=== PATIENT | male | born 1940 | race Caucasian/White ===

== ENCOUNTER → 2016-04-08 | Outpatient (CLI) | payer MEDICARE ==
[~2016-04-08] MED LIST: ACHD5005 PO; ASP81TEC PO; CETI10TA17 PO; CLOP75TA PO; DILT240C87 PO; FISH OIL 1,2001 EAC1 PO; GLUC-153 PO; MULT-1029 PO; PRAV40TA PO
--- NOTE | 2016-04-09 08:24 | ECHOCARDIOGRAPHY REPORT ---
PROCEDURE PHYSICIAN: JIMMIE EVANS DATE OF PROCEDURE: 04/08/2016 TWO DIMENSIONAL ECHOCARDIOGRAM REPORT PRIMARY PHYSICIAN: Dr. Helms OTHER PHYSICIAN: Dr. Evans REFERRING PHYSICIAN: ORDERING PHYSICIAN: Natalie Allred APRN INDICATION FOR THE PROCEDURE: Valvular regurgitation. MEASUREMENTS DERIVED VALUES LV DIAMETER (LAX) NORMALS NORMALS Diastolic 5.3 (3.6-5.2) Eject. Fract. (60%+/-6%) Systolic (2.3-3.9) Diastolic Vol. % Shortening (0.22-0.42) Systolic Vol. Aortic Root 3.1 IVS THICKNESS Diastolic 1 (0.6-1.1) LVPW THICKNESS Diastolic 1 (0.6-1.1) LA DIAMETER Systolic 4.2 (2.1-3.7) DESCRIPTION: Two-dimensional echocardiography shows normal global left ventricular systolic function with normal regional wall motion. Aortic, mitral and tricuspid valve leaflets show good leaflet excursion. There is no significant pericardial effusion. There is mild left atrial enlargement. Doppler imaging shows mild mitral, tricuspid and pulmonic regurgitation. There is no Doppler evidence of significant valvular stenosis. Aortic valve appears to be trileaflet. Pulmonary artery systolic pressure is estimated to be approximately 25 to 30 mmHg. CONCLUSION: 1. Normal global left ventricular systolic function with an ejection fraction of approximately 60%. 2. Mild pulmonic, tricuspid and mitral regurgitation. 3. Pulmonary artery systolic pressure was estimated 20 to 30 mmHg. 4. No evidence of significant valvular stenosis. 5. Mild enlargement of the atrium. Job ID: [id number] Dictated Date: 04/08/2016 15:37:33 Casing Man Date: 04/09/2016 08:15:53 / tila
== END ==
LOC: CARD 07:50
PROVIDERS: ATTEND Nurse Practitioner Family
DX: I34.0 Nonrheumatic mitral (valve) insufficiency (principal); I07.1 Rheumatic tricuspid insufficiency; I47.1 Supraventricular tachycardia; E78.4 Other hyperlipidemia
CPT/HCPCS: 93306

== ENCOUNTER → 2018-12-03 | Outpatient (CLI) | payer MEDICARE | LOC: CARD 12:34 | PROVIDERS: ATTEND Internal Medicine Cardiovascular Disease | DX: I65.29 Occlusion and stenosis of unspecified carotid artery (principal); E78.5 Hyperlipidemia, unspecified; I47.1 Supraventricular tachycardia; I27.21 Secondary pulmonary arterial hypertension; Z86.73 Personal history of transient ischemic attack (TIA), and cerebral infarction without residual deficits; R42 Dizziness and giddiness | CPT/HCPCS: 93306 ==

== ENCOUNTER → 2018-12-07 | Outpatient (CLI) | payer MEDICARE ==
[~2018-12-07] VITALS: Ht 178 cm; Wt 80.0 kg
[~2018-12-07] MED LIST changes: +CATHETER FLUSH 10 ML SYR IV PRN; +REGADENOSON 0.4 MG/5 ML SYR (LEXISCAN) IV ONE
[2018-12-07 09:50] VITALS: BP 134/81
[2018-12-07 09:53] VITALS: BP 144/83
--- NOTE | 2018-12-07 15:26 | STRESS TEST ---
DATE OF SERVICE: 12/07/2018 RESTING AND POST REGADENOSON TECHNETIUM-99M TETROFOSMIN SPECT CT IMAGING ORDERING PHYSICIAN: Natalie Allred APRN PRIMARY PHYSICIAN: Dr. Helms. CLINICAL DIAGNOSES: Paroxysmal supraventricular tachycardia, carotid arterial disease. Baseline images were carried out after injection of 10.97 mCi of technetium-99m Tetrofosmin. This was followed by 0.4 mg regadenoson and 29.2 mCi of technetium-99m Tetrofosmin for stress imaging. The electrocardiogram showed sinus rhythm with subtle nonspecific ST abnormality, which did not change with the regadenoson infusion. The patient noted some headache following regadenoson, which resolved in a few minutes. Review of images at rest and following stress indicates a small to moderate sized lateral perfusion defect, which appears transient. Gated images show normal global left ventricular systolic function with normal regional wall motion. Left ventricular ejection fraction is calculated to be 57%. Left ventricular end diastolic volume is 101 mL. TID is absent (1.06). CONCLUSIONS: 1. The study is suggestive of a small to moderate amount of lateral ischemia. 2. Normal regional wall motion. 3. Normal global left ventricular systolic function with a calculated ejection fraction of 57%. Job ID: [id number] DocumentID: [id number] Dictated Date: 12/07/2018 12:52:28 [employer] Date: 12/07/2018 15:25:41 Dictated By: JIMMIE VASQUEZ MD, MA, FACP, FACC,
== END ==
LOC: CARD 08:13
PROVIDERS: ATTEND Nurse Practitioner Family
DX: I47.1 Supraventricular tachycardia (principal); I65.29 Occlusion and stenosis of unspecified carotid artery
CPT/HCPCS: 78452; 93017

== ENCOUNTER 2018-12-14 07:56 | Day surgery (SDC) | payer MEDICARE ==
[2018-12-14] VITALS (9 sets, daily range): BP systolic 119–140; BP diastolic 69–81
[~2018-12-14] VITALS: Ht 178 cm; Wt 80.0 kg
[~2018-12-14 07:56] MED LIST changes: -CATHETER FLUSH 10 ML SYR IV PRN; -REGADENOSON 0.4 MG/5 ML SYR (LEXISCAN) IV ONE
[2018-12-14] MEDS ORDERED: LIDOCAINE 1% INJ 20 ML 20 ML VIAL ONE (08:04)
[2018-12-14] MEDS ORDERED: HEParin (CATH LAB) 2,000 ML IV ONE (08:04)
[2018-12-14] MEDS ORDERED: NS IV 1000 ML 1,000 ML IV SCH ×2 (08:15→11:43)
[2018-12-14 08:25] LABS: HEMOGLOBIN 14.6 G/DL (13.3-17.7); MEAN PLATELET VOLUME 9.4 FL (7.4-10.4); RED CELL DISTRIBUTION WIDTH 12.4 % (10.0-14.5); WHITE BLOOD COUNT 7.4 10^3/uL (4.3-11.0)
[2018-12-14 08:35] LABS: INR 0.9 (0.8-1.4); PROTHROMBIN TIME PATIENT 12.4 SEC (12.2-14.7)
[2018-12-14] MEDS ORDERED: MIRA25TA PO (08:40)
--- NOTE | 2018-12-14 08:40 | NUR ---
SPOKE TO PATIENT HE LEFT HIS BOTTLES IN HIS CAR. HAD A LIST IN HIS WALLET. WENT OVER LIST WITH PATIENT. CALLED [facility] TO VERIFY HIS MEDICATIONS. THEY STATED HE FILLED PLAVIX 75MG ON 11/12/18 FOR A 90 DAY SUPPLY. BUT IT WAS NOT ON HIS LIST.
[2018-12-14 08:45] LABS: ALANINE AMINOTRANSFERASE 17 U/L (0-55); ALBUMIN 4.6 GM/DL (3.2-4.5); ALKALINE PHOSPHATASE 78 U/L (40-136); BILIRUBIN,TOTAL 0.7 MG/DL (0.1-1.0); BUN/CREATININE RATIO 13; CALCIUM 9.6 MG/DL (8.5-10.1); CARBON DIOXIDE 29 MMOL/L (21-32); CHLORIDE 106 MMOL/L (98-107); CHOLESTEROL 187 MG/DL (< 200); CREATININE SERUM 0.84 MG/DL (0.60-1.30); GFR ESTIMATED > 60; GLUCOSE 98 MG/DL (70-105); HDL CHOLESTEROL 58 MG/DL (40-60); POTASSIUM 3.9 MMOL/L (3.6-5.0); SODIUM 142 MMOL/L (135-145); TOTAL PROTEIN 7.8 GM/DL (6.4-8.2); TRIGLYCERIDES 95 MG/DL (<150); VLDL CHOLESTEROL 19 MG/DL (5-40)
[2018-12-14] MEDS ORDERED: MIDAZOLAM 5 MG/5 ML (VERSED) VIAL ONE (10:04)
[2018-12-14] MEDS ORDERED: fentaNYL INJECTION 100 MCG/2 ML AMP ONE (10:04)
--- NOTE | 2018-12-14 10:13 | Cardiac Procedure Note-CS/ASA ---
Pre-Procedure Note Pre-Op Procedure Note H&P Reviewed The H&P was reviewed, patient examined and no changes noted. Date H&P Reviewed: Dec 14, 2018 Time H&P Reviewed: 10:12 Conscious Sedation Pre-Proced Time 10:12 ASA Score 3 For ASA 3 and 4: Consider anesthesia and medical clearance. Also, for patients with a history of failed moderate sedation consider anesthesia. Airway Lungs Heart ASA score ASA 1: a normal healthy patient ASA 2: a patient with a mild systemic disease (mid diabetes, controlled hypertension, obesity ASA 3: a patient with a severe systemic disease that limits activity (angina, COPD, prior Myocardial infarction) ASA 4: a patient with an incapacitating disease that is a constant threat to life (CHF, renal failure) ASA 5: a moribund patient not expected to survive 24 hrs. (ruptured aneurysm) ASA 6: a declared brain- patient whose organs are being harvested. For emergent operations, add the letter E after the classification Mallampati Classification Grade 2 Sedation Plan Analgesia, Amnesia, Plan communicated to team members, Discussed options with patient/fam, Discussed risks with patient/fam The patient is an appropriate candidate to undergo the planned procedure, sedation, and anesthesia. The patient immediately re-assessed prior to indication. JIMMIE VASQUEZ MD FACP FAC CCDS Dec 14, 2018 10:13
[2018-12-14] MEDS ORDERED: HEParin 1000 UNIT/ML (10ML VIAL) FOR BOLUS ONE (10:45)
[2018-12-14] MEDS ORDERED: ADENOSINE 3 MG/1 ML (ADENOSCAN) 30ML VIAL IV ONE ×2 (10:45→10:46)
[2018-12-14] MEDS ORDERED: PATIENT MAY USE OWN MEDS, ALL PO SCH (11:45)
--- NOTE | 2018-12-14 11:46 | Discharge Inst-Cardiology ---
Discharge Inst-Cardiac Discharge Medications Continued Medications: Aspirin (Aspirin Ec 81 Mg) 81 Mg Tabec 81 MG PO DAILY Clopidogrel Bisulfate (Plavix 75 Mg) 75 Mg Tablet 75 MG PO MWF Diltiazem Hcl (Diltiazem Er 240 Mg (Tiazac)) 240 Mg Capsule.sa 240 MG PO DAILY Beyaqpvd-Dsdhrxv-Qfpe 149-Hyal (Glucosamine-Chondr Complex Tab) 1 Each Tablet 2 TAB PO DAILY Mirabegron (Myrbetriq) 25 Mg Tab.er.24h 25 MG PO HS, TAB Mu-Vits-Min Th/Lycopene/Lutein (Centrum Silver Tablet) 1 Each Tablet 1 TAB PO DAILY Pravastatin Sodium (Pravachol) 40 Mg Tablet 40 MG PO HS Orders-Post D/C & Referrals Pneu Vac Indicated: Yes JIMMIE VASQUEZ MD FACP FAC CCDS Dec 14, 2018 11:46
--- NOTE | 2018-12-14 11:47 | Discharge Inst-Post CATH ---
Discharge Inst-CATH/EP Post Cardiac Cath/EP D/C Inst Follow Up/Plan F/u with Dr Evans in 2 weeks ACTIVITY * Go Home directly and rest. * Limit activity of the leg (or wrist if it was used) for 7 days including aerobics, swimming, jogging, bicycling, etc. * Restrict stair-climbing for 7 days if possible, if not, climb up with your n on-cath leg, then bring together on the same step. * Avoid lifting, pushing, pulling or excessive movement of the affected ex tremity for 7 days. * Customary sexual activity may be resumed after 2 days-use caution not to use a position that strains or causes pain to the affected extremity. * No driving for 24 hours. * NO SMOKING. * Avoid straining for bowel movements for 7 days. * Gentle walking on level ground is allowed. * Returning to work will depend on the type of procedure and the results. Your doctor will discuss this with you. CALL YOUR DOCTOR FOR ANY OF THE FOLLOWING: *If bleeding from the puncture site occurs- Apply gentle pressure to site with clean cloth and call your doctor or EMS. * If a knot or lump forms under the skin, increases in size, or causes pain. * If bruising appears to be worsening or moving further down your leg instead of disappearing. * Temperature above 101 F. CARE OF YOUR GROIN INCISION; * Bruising or purple discoloration of the skin near the puncture site is common. * You may shower only, no bathtub bathing for 5 days. Be careful to avoid slipping as your leg may feel stiff. * If a closure device was used on your femoral artery, please see the attached guide regarding care of the device and your leg. * Leave dressing on FOR 24 hours. CARE OF YOUR WRIST INCISION; * Bruising or purple discoloration of the skin near the puncture site is common. * You may shower. * DO NOT submerge wrist. * Leave dressing on FOR 24 hours. JIMMIE EVANS MD FAC FAC CCDS Dec 14, 2018 11:47
--- NOTE | 2018-12-14 13:57 | CARDIAC CATHETERIZATION ---
DATE OF SERVICE: 12/14/2018 CARDIAC CATHETERIZATION REPORT The patient is a 78-year-old man who has coronary artery disease risk factors and who had a myocardial perfusion imaging study done recently prior to having orthopedic surgery. This showed lateral ischemia, small to moderate. Cardiac catheterization was carried out today after having obtained an informed consent. DESCRIPTION OF PROCEDURE: He was brought to the cardiac catheterization laboratory in a fasting state. Right groin was prepared and draped in the usual sterile fashion. Lidocaine 1% used for local anesthesia. Modified Seldinger technique was used to advance a 5-Gibraltarian sheath for right femoral artery, 5-Gibraltarian JL4 catheter for left coronary angiography, 5-Gibraltarian JR4 catheter for right coronary angiography, 5-Gibraltarian pigtail catheter was used for left heart catheterization and left ventricular angiography. Angiography of the right femoral artery was carried out through the sheath. Mynx was used to achieve hemostasis following sheath removal. HEMODYNAMICS: Left ventricular end-diastolic pressure following coronary angiography was 13 mmHg. There is no significant pressure gradient on pullback across the aortic valve. Ascending aortic pressure was 113/60 with a mean of 73 mmHg. CORONARY ANGIOGRAPHY: Coronary calcification is present involving all coronary vessels. Left main coronary artery does not exhibit significant obstructive disease. Left anterior descending artery has diffuse mild to moderate disease. The terminal portion of the left anterior descending artery has a localized 90% stenosis. This is just prior to the artery terminating and the vessel is of a small caliber over there and not amenable to intervention. A small caliber ramus intermedius artery is chronically occluded. Left circumflex artery had 50% proximal stenosis. The right coronary artery was a dominant and had multiple 50% stenosis in its distal portion, including the origin of the posterior descending branch. LEFT VENTRICULAR ANGIOGRAPHY: Showed normal global left ventricular systolic function with ejection fraction of 65%. No regional wall motion abnormalities were seen. FRACTIONAL FLOW RESERVE MEASUREMENT IN THE CIRCUMFLEX ARTERY: Following completion of the diagnostic procedure, we exchanged the sheath over a wire for 6-Gibraltarian sheath. We used a 6-Gibraltarian JL4.5 guide catheter to engage the left coronary artery. We gave 5000 units of intravenous heparin. We used a pressure wire to cross the lesion in the proximal left circumflex artery and the tip was placed in the distal vessel. We infused adenosine at 140 mcg per kilogram per minute for 2-1/2 minutes. A fractional flow reserve was 0.99, indicating that this lesion was not hemodynamically significant. CONCLUSIONS: 1. Coronary artery disease as described in detail above. The very terminal portion of the left anterior descending artery has 90% stenosis, but is of a small caliber and not amenable to intervention. A small caliber ramus intermedius is chronically occluded. Left circumflex artery has 50% proximal stenosis with a fractional flow reserve was 0.99, indicating hemodynamic insignificance. Right coronary artery has multiple 50% stenosis in its distal portion. 2. Normal global left ventricular systolic function with ejection fraction 65%. 3. Mild elevation of left ventricular end-diastolic pressure. DISCUSSION AND RECOMMENDATIONS: Based on results of the study, conservative therapy appears appropriate. Cardiac risk for noncardiac surgery is estimated to be intermediate. Outpatient followup is advised. Job ID: [id number] DocumentID: [id number] Dictated Date: 12/14/2018 11:26:37 Search Developer Date: 12/14/2018 13:55:52 Dictated By: JIMMIE VASQUEZ MD, MA, FACP, FACC,
== END 2018-12-14 14:55 | disposition home or self-care (01) ==
LOC: CATH 07:56 → SDC 11:40 → CATH 14:55
PROVIDERS: ATTEND Internal Medicine Cardiovascular Disease
DX: I25.10 Atherosclerotic heart disease of native coronary artery without angina pectoris (principal); I77.9 Disorder of arteries and arterioles, unspecified; I47.1 Supraventricular tachycardia; I99.8 Other disorder of circulatory system; R42 Dizziness and giddiness; M25.562 Pain in left knee; G89.29 Other chronic pain; E78.5 Hyperlipidemia, unspecified; Z79.82 Long term (current) use of aspirin; Z86.73 Personal history of transient ischemic attack (TIA), and cerebral infarction without residual deficits; Z79.02 Long term (current) use of antithrombotics/antiplatelets; Z79.899 Other long term (current) drug therapy; Z82.49 Family history of ischemic heart disease and other diseases of the circulatory system; Z80.1 Family history of malignant neoplasm of trachea, bronchus and lung
CPT/HCPCS: 36415; 80053; 80061; 85027; 85610; 85730; 87081; 93458

== ENCOUNTER → 2020-11-06 | Outpatient (CLI) | payer MEDICARE ==
[~2020-11-06] MED LIST changes: +MIRA25TA PO
== END ==
LOC: CARD 13:11
PROVIDERS: ATTEND Internal Medicine Cardiovascular Disease
DX: I51.7 Cardiomegaly (principal); I27.21 Secondary pulmonary arterial hypertension
CPT/HCPCS: 93306

== ENCOUNTER → 2021-06-18 | Outpatient (CLI) | payer MEDICARE ==
--- NOTE | 2021-06-18 14:30 | Diagnostic Imaging Report ---
PROCEDURE: CT abdomen and pelvis without contrast. TECHNIQUE: Multiple contiguous axial images were obtained through the abdomen and pelvis without the use of intravenous contrast. Auto Exposure Controls were utilized during the CT exam to meet ALARA standards for radiation dose reduction. INDICATION: Prostate carcinoma. COMPARISON: No prior studies are available for comparison. FINDINGS: The lung bases are clear. The liver is unremarkable. There are multiple stones within the gallbladder. No biliary ductal dilatation is seen. The pancreas and spleen are unremarkable. No adrenal mass is detected. No renal calculus or hydronephrosis is detected. Aorta is nonaneurysmal. No definite central retroperitoneal or mesenteric lymphadenopathy is seen. Bowel loops are nonobstructed. There is diverticulosis of the descending and sigmoid colon but no evidence of acute diverticulitis. No free fluid or fluid collection is seen. Bladder is unremarkable. Prostate is enlarged. No pelvic lymphadenopathy is detected. IMPRESSION: 1. Cholelithiasis. 2. Uncomplicated diverticulosis. 3. No evidence of abdominal or pelvic lymphadenopathy or metastatic disease. 4. Prostatomegaly. Dictated by: Dictated on workstation # [id number]
--- NOTE | 2021-06-18 15:24 | Diagnostic Imaging Report ---
INDICATION: Newly diagnosed prostate carcinoma. The patient was administered 26.1 mCi technetium 99m MDP intravenously and whole-body imaging was performed after a 3 hour delay. COMPARISON: No prior studies are available for comparison. There is normal uptake of activity by the axial and appendicular skeleton. There is uptake by the kidneys with excretion to the urinary bladder. There appear to be postoperative changes to the left knee. No suspicious foci are identified to suggest osseous metastatic disease. There appears to be degenerative changes lower lumbar spine. IMPRESSION: No scintigraphic evidence of osseous metastatic disease. Dictated by: Dictated on workstation # [id number]
== END ==
LOC: CARD 12:00
PROVIDERS: ATTEND Urology
DX: C61 Malignant neoplasm of prostate (principal); K80.20 Calculus of gallbladder without cholecystitis without obstruction
CPT/HCPCS: 74176; 78306; A9503

== ENCOUNTER 2021-07-01 11:06 | Outpatient (RCR) | payer MEDICARE ==
[2021-07-03] MEDS ORDERED: FLUT9.9S NS (11:15)
[2021-07-03] MEDS ORDERED: STRESSTABS (11:15)
[2021-07-03] MEDS ORDERED: ZINC50CA2 PO (11:15)
[2021-07-03] MEDS ORDERED: ASCO100024 PO (11:15)
[2021-07-03] MEDS ORDERED: CHOLECALCIFEROL PO (11:15)
[2021-07-09] MEDS ORDERED: CIPR-225 PO (08:00)
[2021-07-09] MEDS ORDERED: PHEN-640 PO (08:00)
== END 2021-07-13 | disposition home or self-care (01) ==
LOC: ONC 11:06
PROVIDERS: ATTEND Radiology Radiation Oncology
DX: C61 Malignant neoplasm of prostate (principal); I10 Essential (primary) hypertension; E78.00 Pure hypercholesterolemia, unspecified; Z86.73 Personal history of transient ischemic attack (TIA), and cerebral infarction without residual deficits; Z79.82 Long term (current) use of aspirin; Z79.899 Other long term (current) drug therapy
CPT/HCPCS: 76873; G0463; 99204

== ENCOUNTER 2021-07-03 05:27 | Outpatient (CLI) | payer MEDICARE ==
[~2021-07-03] VITALS: Ht 177.8 cm; Wt 86.8 kg
[2021-07-03] MEDS ORDERED: FLUT9.9S NS (11:15)
[2021-07-03] MEDS ORDERED: ASCO100024 PO (11:15)
[2021-07-03] MEDS ORDERED: ZINC50CA2 PO (11:15)
[2021-07-03] MEDS ORDERED: STRESSTABS (11:15)
[2021-07-03] MEDS ORDERED: CHOLECALCIFEROL PO (11:15)
== END 2021-07-03 11:21 | disposition home or self-care (01) ==
LOC: PREOP 05:27
PROVIDERS: ATTEND Urology
DX: Z01.818 Encounter for other preprocedural examination (principal)

== ENCOUNTER 2021-07-09 06:14 | Day surgery (SDC) | payer MEDICARE ==
[~2021-07-09] VITALS: Ht 177.8 cm; Wt 86.8 kg
[2021-07-09] VITALS (10 sets, daily range): BP systolic 136–156; BP diastolic 72–88
[~2021-07-09 06:14] MED LIST changes: +ASCO100024 PO; +CHOLECALCIFEROL PO; +FLUT9.9S NS; +STRESSTABS; +ZINC50CA2 PO
[2021-07-09] MEDS ORDERED: cefTRIAXone 1 GM PRE-MIX 50 ML IV ONE ×2 (06:53→07:00)
[2021-07-09] MEDS ORDERED: LACTATED RINGERS 1,000 ML IV PRN (07:00)
--- NOTE | 2021-07-09 07:15 | Progress Note-Pre Operative ---
Pre-Operative Progress Note H&P Reviewed The H&P was reviewed, patient examined and no changes noted. Date Seen by Provider: Jul 09, 2021 Time Seen by Provider: 07:15 Date H&P Reviewed: Jul 09, 2021 Time H&P Reviewed: 07:15 Pre-Operative Diagnosis: CA PROSTATE SHAD CONWAY MD Jul 09, 2021 07:15
--- NOTE | 2021-07-09 07:19 | Progress Note-Post Operative ---
Post-Operative Progess Note Surgeon (s)/Earth Science Technician (s) Surgeon SHAD CONWAY MD Earth Science Technician: NONE Pre-Operative Diagnosis CA PROSTATE Post-Operative Diagnosis SAME Procedure & Operative Findings Date of Procedure 07/09/21 Procedure Performed/Findings GOLD SEEDS AND SPACE OAR PLACEMENT Anesthesia Type GENERAL Estimated Blood Loss Estimated blood loss (mL): NONE Specimens/Packing Specimens Removed NONE Packing: NONE SHAD CONWAY MD Jul 09, 2021 07:19
--- NOTE | 2021-07-09 07:26 | Discharge Inst-Urology ---
Discharge Inst-Urology Reconcile Patient Problems Problems Reviewed?: Yes Final Diagnosis CA PROSTATE Patient Instructions/Follow Up Plan/Assessment/Instructions Please make appointment to been seen in office in 3 weeks. Increase oral fluids for 48 hours and then as needed. Diet and Activity as tolerated. If questions or concerns contact your physician Or seek help at emergency department. SHAD CONWAY MD Jul 09, 2021 07:25
[2021-07-09] MEDS ORDERED: CIPR-225 PO (08:00)
[2021-07-09] MEDS ORDERED: PHEN-640 PO (08:00)
[2021-07-09] MEDS ORDERED: SEVOFLURANE (ULTANE) 15 ML INHAL SOLN ONE (08:11)
[2021-07-09] MEDS ORDERED: proPOfol 200 MG/20 ML (DIPRIVAN) VIAL IV ONE (08:11)
[2021-07-09] MEDS ORDERED: fentaNYL INJ 100 MCG/2 ML AMP ONE (08:11)
[2021-07-09] MEDS ORDERED: ONDANSETRON 4 MG/2 ML (SDV) Z0FRAN ONE (08:11)
[2021-07-09] MEDS ORDERED: LIDOCAINE PF 2% 5 ML (XYLOCAINE) VIAL ONE (08:11)
[2021-07-09] MEDS ORDERED: SUCCINYLCHOLINE INJ 100 MG/5 ML SYR/VIAL ONE (09:22)
[2021-07-09] MEDS ORDERED: ONDANSETRON 4 MG/2 ML (SDV) Z0FRAN IVP PRN (10:00)
[2021-07-09] MEDS ORDERED: HYDROmorphone 2 MG/ML VIAL (DILAUDID) IV ONE (10:00)
--- NOTE | 2021-07-09 10:39 | Anesthesia-General Post-Op ---
General Patient Condition Mental Status/LOC: Same as Preop Cardiovascular: Satisfactory Nausea/Vomiting: Absent Respiratory: Satisfactory Pain: Controlled Complications: Absent Post Op Complications Complications None Follow Up Care/Instructions Patient Instructions None needed. Anesthesia/Patient Condition Patient Condition Patient is doing well, no complaints, stable vital signs, no apparent adverse anesthesia problems. No complications reported per nursing. D/C home per [facility] Criteria: Yes COMFORT STOVER CRNA Jul 09, 2021 10:39
== END 2021-07-09 11:35 | disposition home or self-care (01) ==
LOC: SDC 06:14
PROVIDERS: ATTEND Urology
DX: C61 Malignant neoplasm of prostate (principal)
CPT/HCPCS: 55874; 55876; 87081; C1889

== ENCOUNTER → 2021-08-13 | Outpatient (RCR) | payer MEDICARE ==
[~2021-08-13] MED LIST changes: +CIPR-225 PO; +PHEN-640 PO
== END | disposition home or self-care (01) ==
LOC: ONC 07-23 09:47
PROVIDERS: ATTEND Radiology Radiation Oncology
DX: Z51.0 Encounter for antineoplastic radiation therapy (principal); C61 Malignant neoplasm of prostate; I10 Essential (primary) hypertension; E78.00 Pure hypercholesterolemia, unspecified; Z86.73 Personal history of transient ischemic attack (TIA), and cerebral infarction without residual deficits; Z79.82 Long term (current) use of aspirin; Z79.899 Other long term (current) drug therapy
CPT/HCPCS: 77300; 77301; 77334; 77336; 77338; 77385

== ENCOUNTER 2021-09-10 09:08 | Outpatient (RCR) | payer MEDICARE | END 2021-09-12 | disposition home or self-care (01) | LOC: ONC 09:08 | PROVIDERS: ATTEND Radiology Radiation Oncology | DX: Z51.0 Encounter for antineoplastic radiation therapy (principal); C61 Malignant neoplasm of prostate; I10 Essential (primary) hypertension; E78.5 Hyperlipidemia, unspecified; I25.10 Atherosclerotic heart disease of native coronary artery without angina pectoris; Z86.73 Personal history of transient ischemic attack (TIA), and cerebral infarction without residual deficits; Z79.899 Other long term (current) drug therapy | CPT/HCPCS: 77385; G0463; 77336 ==

== ENCOUNTER 2021-10-24 10:18 | Outpatient (RCR) | payer MEDICARE | END 2021-11-13 | disposition home or self-care (01) | LOC: ONC 10:18 | PROVIDERS: ATTEND Radiology Radiation Oncology | DX: C61 Malignant neoplasm of prostate (principal); I10 Essential (primary) hypertension; E78.5 Hyperlipidemia, unspecified; I25.10 Atherosclerotic heart disease of native coronary artery without angina pectoris; Z86.73 Personal history of transient ischemic attack (TIA), and cerebral infarction without residual deficits; Z79.899 Other long term (current) drug therapy | CPT/HCPCS: 99213 ==

== ENCOUNTER 2022-06-10 08:46 | Outpatient (RCR) | payer MEDICARE | END 2022-06-13 | disposition home or self-care (01) | LOC: ONC 08:46 | PROVIDERS: ATTEND Radiology Radiation Oncology | DX: C61 Malignant neoplasm of prostate (principal); I10 Essential (primary) hypertension; E78.5 Hyperlipidemia, unspecified; I25.10 Atherosclerotic heart disease of native coronary artery without angina pectoris; Z86.73 Personal history of transient ischemic attack (TIA), and cerebral infarction without residual deficits; Z79.899 Other long term (current) drug therapy | CPT/HCPCS: 36415; 84153 ==